=== PATIENT | female | born 1945 | race American Indian/Alaskan Native ===

== ENCOUNTER 2016-05-12 21:24 | Emergency (ER) | payer BC ==
[2016-05-12] MEDS ORDERED: CATAPRES ONE (22:14)
[2016-05-12] MEDS ORDERED: TYLENOL ONE (22:15)
[2016-05-12] MEDS ORDERED: CATAPRES PO ONE (22:21)
[2016-05-12] MEDS ORDERED: TYLENOL PO ONE (22:21)
[2016-05-13] MEDS ORDERED: ULTRAM PO ONE (03:45)
--- NOTE | 2016-05-13 04:28 | Emergency Department Report ---
HPI - General Chief Complaint: Extremity Problem,Nontraumatic Time Seen by Provider: 05/13/16 03:45 - HPI HPI: Patient is a 70-year-old female who presents to the ED complaining of left shoulder pain since March. Patient states she saw her primary care physician who diagnosed her with a pinched nerve by a medication that she was prescribed is not working. Patient states she takes gabapentin and ibuprofen for the pain. Patient states she was referred to physical therapy and has had 2 sessions of physical therapy with no relief. She denies any injury or trauma to the shoulder Patient denies fever/chills/vomiting/abdominalpain/chestpain/dizziness. ED Past Medical Hx - Past Medical History Previous Medical History?: Yes Hx Hypertension: Yes Hx Arthritis: Yes - Surgical History Past Surgical History?: No - Social History Smoking Status: Never Smoker Substance Use Type: None - Medications Home Medications: Home Medications Medication Instructions Recorded Confirmed Last Taken Type traMADol [Ultram 50 MG tab] 50 mg PO Q6H #24 tablet 05/13/16 Unknown Rx ED Review of Systems ROS: Stated complaint: LT SHOULDER PAIN Other details as noted in HPI Constitutional: denies: chills, fever Eyes: denies: eye pain, eye discharge, vision change ENT: denies: ear pain, throat pain Respiratory: denies: cough, shortness of breath, wheezing Cardiovascular: denies: chest pain, palpitations Endocrine: no symptoms reported Gastrointestinal: denies: abdominal pain, nausea, diarrhea Genitourinary: denies: urgency, dysuria, discharge Musculoskeletal: myalgia. denies: back pain, joint swelling, arthralgia Skin: denies: rash, lesions Neurological: denies: headache, weakness, numbness, paresthesias, confusion, abnormal gait Psychiatric: denies: anxiety, depression Hematological/Lymphatic: denies: easy bleeding, easy bruising Physical Exam - Physical Exam Vital Signs: Vital Signs 05/12/16 05/12/16 22:03 22:22 Temperature 98.3 F Pulse Rate 95 H 95 H Respiratory 18 Rate Blood Pressure 180/115 180/115 O2 Sat by Pulse 100 Oximetry Physical Exam: GENERAL: Alert and oriented x3, no apparent distress, Normal Gait, atraumatic. HEAD: Head is normocephalic and a-traumatic. EYES: Extra ocular muscles are intact. Pupils are equal, round, and reactive to light and accommodation. NECK: Supple. Non edematous, No carotid bruits. No lymphadenopathy or thyromegaly. No cervical spine tenderness LUNGS: Symetrical with respiration, No wheezing, no rales or crackles, CTAB. HEART: S1, S2 present, regular rate and rhythm without murmur, no rubs, no gallops. EXTREMITIES/MUSCULOSKELETAL: No cyanosis, clubbing, rash, lesions or edema. Full ROM bilaterally. UE Pulses 2+ bilaterally. UE 5+ strength bilaterally. Tenderness to palpation left scapular region. No arm pain. No bruising or ecchymosis seen NEUROLOGIC: No focal Deficit, Cranial nerves II through XII are grossly intact. No loss of sensation, PSYCHIATRIC: Mood is congruent with affect, denies suicidal or homicidal ideations. SKIN: Warm and dry, No lesions, No ulceration or induration present. ED Course Vital Signs 05/12/16 05/12/16 22:03 22:22 Temperature 98.3 F Pulse Rate 95 H 95 H Respiratory 18 Rate Blood Pressure 180/115 180/115 O2 Sat by Pulse 100 Oximetry ED Medical Decision Making - Medical Decision Making 70-year-old male presents with chronic left shoulder pain ED course: Patient received Tylenol in triage ,100 mg of tramadol in ED, blood pressure was elevated triage the patient received Catapres 0.1 mg Patient states she takes lisinopril 40 for blood pressure. patient has no symptoms no blurry vision or dizziness discussed the patient take medication daily as prescribed. Discussed the patient to follow up with primary care doctor for further management of chronic pain. Discussed possibly MRI may be needed if symptoms are worsening and not relieved. Discussed the patient is currently done as an outpatient with her primary care. Vital signs are stable blood pressure decreased to 157/90 prior to discharge patient is in no acute respiratory distress patient is resting comfortably Critical care attestation.: If time is entered above; I have spent that time in minutes in the direct care of this critically ill patient, excluding procedure time. ED Disposition Clinical Impression: Myalgia, Cervical radiculopathy Disposition: DISCHARGED TO HOME OR SELFCARE Is pt being admited?: No Does the pt Need Aspirin: No Condition: Stable Instructions: Trigger Point Pain (ED), Cervical Radiculopathy (ED), Musculoskeletal Pain (ED), Heat Pack Application (ED) Additional Instructions: You can stop taking the gabapentin and take prescribed tramadol and take as prescribed with ibuprofen. Follow-up which her primary care physician Prescriptions: traMADol [Ultram 50 MG tab] 50 mg PO Q6H #24 tablet Referrals: PRIMARY CARE, [Primary Care Provider] - 3-5 Days LUIGI GAN MD [Staff Physician] - 3-5 Days BENJI CISNEROS MD [Referring] - 3-5 Days [facility] [Outside] - 3-5 Days [facility] [Outside] - 3-5 Days [facility] [Outside] - 3-5 Days Forms: Accompanied Note, Work/School Release Form(ED) Time of Disposition: 04:31
[2016-05-13 04:31] VITALS: BP 157/99
== END 2016-05-13 04:50 | disposition home or self-care (01) ==
LOC: ED 21:24
DX: M54.12 Radiculopathy, cervical region (principal); M79.1 Myalgia; I10 Essential (primary) hypertension; M19.90 Unspecified osteoarthritis, unspecified site
CPT/HCPCS: 99282

== ENCOUNTER 2017-07-23 09:19 | Outpatient (CLI) | payer BC ==
--- NOTE | 2017-07-23 16:24 | Mammography Report ---
BONE DEXA:07/23/17 10:00:00 CLINICAL: Postmenopausal. No comparison. TECHNIQUE: Two site bone DEXA performed on an [employer] scanner. FINDINGS: The average BMD of the lumbar spine L1-L4 is 0.842g/cm squared with a T-score of -1.9 and a Z-score of 0.5. The average BMD of the left hip is 0.731g/cm squared with a T-score of -1.7 and a Z-score of by 0.8. The left femoral neck BMD is 0.589g/cm squared with a T score of -2.3 and a Z score of -1.1. IMPRESSION: 1. WHO classification: Osteopenia with increased fracture risk based on lumbar spine measurements. 2. WHO classification: Osteopenia with increased fracture risk based on left hip measurements. 3. The FRAX 10 year fracture probability for a major osteoporotic fracture is 5.5%. 4. The FRAX 10 year fracture probability for hip fracture is 1.2%. Note: FRAX version 3.01. Fracture probability calculated for an untreated patient. Fracture probability may be lower if the patient has received treatment. RECOMMENDATION: Clinical correlation and routine screening. DEFINITIONS: BMD = Bone Mineral Density T-score = BMD related to mean peak bone mass of young adult (mean expressed in Standard Deviation) Z-score = Age matched BMD expressed in SD World Health Organization (WHO) Diagnostic Criteria Normal T-score > -1 SD Osteopenia T-score between -1 and -2.4 SD Osteoporosis T-score -2.5 SD or below NOTE: BMD is not the only risk factor for fracture; also consider factors such as the patient's age, risk of falling, previous osteoporotic fracture, family history of osteoporotic fractures, current smoker, and low body weight. All treatment decisions require clinical judgment and consideration of individual patient factors, including patient preferences, comorbidities, previous drug use and risk factors not captured in the FRAX model (e.g. frailty, falls, vitamin D deficiency, increased bone turnover, interval significant decline in BMD). Fracture probability is calculated for an untreated patient. Fracture probability may be lower if the patient has received treatment. Z-scores are not calculated if >80 years of age.
== END 2017-07-23 09:20 | disposition home or self-care (01) ==
LOC: MAMMO 09:19
PROVIDERS: ATTEND Student in an Organized Health Care Education/Training Program
DX: M85.88 Other specified disorders of bone density and structure, other site (principal); I10 Essential (primary) hypertension; Z78.0 Asymptomatic menopausal state
CPT/HCPCS: 77080